=== PATIENT | female | born 1980 | race Hispanic/Latino ===

== ENCOUNTER → 2024-08-17 | Outpatient (CLI) | payer BC ==
[2024-08-17 13:01] LABS: PLATELET FUNCTION ANALYSIS EPI > 300 SEC (55-192)
[2024-08-17 13:02] LABS: HEMATOCRIT 41.7 % (36-48); PLATELET COUNT (AUTO) 264 K/uL (130-400); PLATELET FUNCTION ANALYSIS ADP 128 SEC (62-100)
[2024-08-17 13:03] LABS: PFA INTERPRETATION PFA INTERPRETATION
== END | disposition home or self-care (01) ==
LOC: LAB 11:53
PROVIDERS: ATTEND Internal Medicine Medical Oncology
DX: C50.412 Malignant neoplasm of upper-outer quadrant of left female breast (principal)
CPT/HCPCS: 36415; 85576

== ENCOUNTER → 2024-11-23 | Outpatient (CLI) | payer BC ==
[2024-11-23 10:46] LABS: MEAN CORPUSCULAR HGB CONC 33.8 g/dL (32.0-36.0); RED CELL DISTRIBUTION WIDTH 14.3 % (11.0-15.5)
[2024-11-23 10:47] LABS: ADD UA MICROSCOPIC YES; APPEARANCE,URINE CLEAR (CLEAR); BILIRUBIN,URINE NEGATIVE (NEGATIVE); COLOR,URINE LIGHT-YELLOW (YELLOW); GLUCOSE, URINE (UA) >=1000 mg/dL (NEGATIVE); KETONES,URINE NEGATIVE (NEGATIVE); LEUKOCYTE ESTERASE ,URINE NEGATIVE Leu/uL (NEGATIVE); NITRATE,URINE NEGATIVE (NEGATIVE); OCCULT BLOOD,URINE SMALL (NEGATIVE); PH,URINE 5.5 (5.0-8.0); PROTEIN,URINE NEGATIVE (NEGATIVE); RBC,URINE 0-1 /HPF (0-1); SQUAMOUS EPITHELIAL CELL,UR RARE /HPF (0-2); UROBILINOGEN,URINE 0.2 mg/dL (0.2-1.0)
[2024-11-23 10:50] LABS: HEMATOCRIT 42.2 % (36-48); RED BLOOD CELL COUNT(AUTO) 5.48 MIL/uL (4.00-5.50); WHITE BLOOD COUNT (AUTO) 4.2 K/uL (4.8-10.8)
[2024-11-23 10:51] LABS: BASOPHILS % (AUTO) 0.5 % (0.0-5.0); EOSINOPHILS % (AUTO) 1.7 % (0.0-8.0); IMMATURE GRANULOCYTE ABSOLUTE 0.02 K/uL (0-1); LYMPHOCYTES % (AUTO) 18.3 % (21.0-51.0); MONOCYTES % (AUTO) 6.5 % (3.0-13.0); NEUTROPHILS % (AUTO) 72.5 % (40.0-77.0); PLATELET COUNT (AUTO) 228 K/uL (130-400)
[2024-11-23 10:52] LABS: BASOPHILS # (AUTO) 0.02 K/uL (0.00-0.20); EOSINOPHILS # (AUTO) 0.07 K/uL (0.00-0.70); LYMPHOCYTES # (AUTO) 0.8 K/uL (1.0-4.8); MONOCYTES # (AUTO) 0.3 K/uL (0.1-1.0)
[2024-11-23 11:36] LABS: POTASSIUM 3.8 mmol/L (3.5-5.1); SODIUM SERUM 132 mmol/L (136-145)
[2024-11-23 11:37] LABS: CHLORIDE 96 mmol/L (101-111); GLUCOSE,RANDOM 255 mg/dL (70-105); HDL CHOLESTEROL 29 mg/dL (35-85); LDL DIRECT 36 mg/dL (0-99)
[2024-11-23 11:38] LABS: CREATININE 0.4 mg/dL (0.5-1.0); GLOMERULAR FILTR. RATE CALC 125 mL/min (>90)
[2024-11-23 11:39] LABS: ALBUMIN 3.6 g/dL (3.5-5.0); BILIRUBIN,TOTAL 0.3 mg/dL (0.2-1.0); CHOLESTEROL 205 mg/dL (<200); TOTAL PROTEIN, SERUM 6.9 g/dL (6.0-8.3)
[2024-11-23 12:02] LABS: ALANINE AMINOTRANSFERASE < 6 U/L (12-78); ASPARTATE AMINOTRANSFERASE 33 U/L (10-37)
[2024-11-23 12:03] LABS: TRIGLYCERIDES 4989 mg/dL (30-200)
[2024-11-23 12:11] LABS: UREA NITROGEN, BLOOD 2 mg/dL (7-18)
[2024-11-23 12:18] LABS: CARBON DIOXIDE 10 mmol/L (21-32)
== END | disposition home or self-care (01) ==
LOC: LAB 09:07
PROVIDERS: ATTEND Internal Medicine Endocrinology, Diabetes & Metabolism
DX: I10 Essential (primary) hypertension (principal); E11.65 Type 2 diabetes mellitus with hyperglycemia; E78.2 Mixed hyperlipidemia; E03.8 Other specified hypothyroidism; E55.9 Vitamin D deficiency, unspecified; E88.40 Mitochondrial metabolism disorder, unspecified
CPT/HCPCS: 36415; 80053; 80061; 81001; 82306; 82607; 83036; 84443; 85025; 87086